=== PATIENT | male | born 1995 | race Hispanic/Latino ===

== ENCOUNTER 2016-10-25 10:25 | Emergency (ER) | payer SELFPAY ==
[~2016-10-25] VITALS: Ht 172.7 cm; Wt 63.4 kg
[~2016-10-25 10:25] MED LIST: MYCELEX10 MG PO
[2016-10-25] MEDS ORDERED: AZITHROMYCIN250 MG PO (12:24)
[2016-10-25 12:45] VITALS: BP 115/78
== END 2016-10-25 12:46 | disposition home or self-care (01) ==
LOC: EME 10:25
DX: J02.9 Acute pharyngitis, unspecified (principal); R50.9 Fever, unspecified
CPT/HCPCS: 87651 90; 99281; 99284

== ENCOUNTER 2016-10-29 23:11 | Emergency (ER) | payer SELFPAY ==
[~2016-10-29] VITALS: Ht 167.6 cm; Wt 64.7 kg
[~2016-10-29 23:11] MED LIST changes: +AZITHROMYCIN250 MG PO
[2016-10-29 23:14] VITALS: BP 144/74
[2016-10-29] MEDS ORDERED: CLOTRIMAZOLE10 MG PO (23:43)
== END 2016-10-30 00:08 | disposition home or self-care (01) ==
LOC: EME 23:11 → RME 23:11
DX: B37.0 Candidal stomatitis (principal)
CPT/HCPCS: 99281; 99284